=== PATIENT | male | born 1960 | race Caucasian/White ===

== ENCOUNTER 2022-10-25 10:49 | Emergency (ER) | payer MEDICAID ==
[~2022-10-25] VITALS: Ht 170.2 cm; Wt 87.0 kg
[~2022-10-25 10:49] MED LIST: AMLO10TA PO
[2022-10-25 10:52] VITALS: BP 135/87
[2022-10-25] MEDS ORDERED: LORA2TAB96 PO (13:03)
== END 2022-10-25 13:14 | disposition home or self-care (01) ==
LOC: ER 10:49
DX: F10.239 Alcohol dependence with withdrawal, unspecified (principal); Y90.9 Presence of alcohol in blood, level not specified
CPT/HCPCS: 99283